=== PATIENT | male | born 1965 | race African-American/Black ===

== ENCOUNTER 2021-01-06 00:46 | Emergency (ER) | payer MEDICAID ==
[~2021-01-06] VITALS: Ht 177.8 cm; Wt 99.8 kg
--- NOTE | 2021-01-06 01:00 | NUR ---
PT BIBSELF C/O EAR IMPACTION SINCE 2329. PT AAOX4 BREATHING EVENLY AND UNLABORED. PT STATES "I CANT REALLY HEAR, IT FEELS LIKE IM UNDERWATER". EMT AT BEDSIDE TO PERFORM EAR IRRIGATION. PT SKIN WARM, DRY, AND INTACT. PT ATTACHED TO MONITOR AND POX. PT GIVEN BLANKET AND CALL LIGHT WITHIN REACH. WILL CONTINUE TO MONITOR
--- NOTE | 2021-01-06 01:46 | NUR ---
Patient discharged to home in stable condition. Written and verbal after care instructions given. Patient verbalizes understanding of instruction. Pt ambulatory with a steady gait
[2021-01-06 01:50] VITALS: BP 150/100
== END 2021-01-06 01:46 | disposition home or self-care (01) ==
LOC: ER 00:50
DX: H61.23 Impacted cerumen, bilateral (principal); I10 Essential (primary) hypertension; Z88.0 Allergy status to penicillin